=== PATIENT | female | born 1940 | race Caucasian/White ===

== ENCOUNTER 2016-11-28 12:05 | Emergency (ER) | payer OTHER, BC ==
[2016-11-28 12:13] VITALS: BP 130/70; PULSE 80; TEMP 97.8; BMI 46.5
--- NOTE | 2016-11-28 13:40 | PDOC ---
History of Present Illness - General Chief Complaint: Eye Problem Stated Complaint: R EYE REDNESS AND SWELLING Time Seen by Provider: 11/28/16 12:11 History Source: Patient, Family Exam Limitations: No Limitations - History of Present Illness Initial Comments: 11/28/16 13:35 CHIEF COMPLAINT: Right upper eyelid swelling 2 days HISTORY OF PRESENT ILLNESS: This is a 75-year-old woman with a history of atrial fibrillation. Patient developed right upper eyelid discomfort with swelling 2 days. There is some mild mucous discharge. There is no change in vision. There is no fever or chills. No history of trauma. REVIEW OF SYSTEMS: No fever or chills No headache Positive mild right upper lid discomfort No vision change No sore throat No cough Past History - Past Medical History Allergies/Adverse Reactions: Allergies Allergy/AdvReac Type Severity Reaction Status Date / Time No Known Allergies Allergy Verified 11/28/16 12:15 Home Medications: Ambulatory Orders Metoprolol Succinate [Toprol XL -] 25 mg PO BID #60 tab.sr.24h 09/24/14 Rivaroxaban [Xarelto -] 20 mg PO DAILY #30 tablet 09/24/14 Bacitracin Ophthalmic Oint - 1 applic OD Q4H #1 tube 11/28/16 Furosemide [Lasix] 40 mg PO ASDIR 11/28/16 Anemia: No Asthma: No Cancer: Yes (UTERINE) Cardiac Disorders: Yes (PALPITATIONS) CVA: No COPD: No CHF: Yes (??? on lasix and aldactone, denies) Dementia: No Diabetes: No GI Disorders: No Disorders: No HTN: Yes Hypercholesterolemia: No Liver Disease: No Seizures: No Thyroid Disease: No - Surgical History Abdominal Surgery: No Appendectomy: Yes Cardiac Surgery: No Cholecystectomy: No Lung Surgery: No Neurologic Surgery: No Orthopedic Surgery: No Other Surgical History: 11/28/16 13:37 hysterectomy for cancer 10 years ago - Psycho/Social/Smoking Cessation Hx Anxiety: No Suicidal Ideation: No Smoking History: Never smoked Have you smoked in the past 12 months: No Hx Alcohol Use: No Drug/Substance Use Hx: No Substance Use Type: None Hx Substance Use Treatment: No *Physical Exam - Vital Signs Last Vital Signs Temp Pulse Resp BP Pulse Ox 97.8 F 80 18 130/70 100 11/28/16 12:08 11/28/16 12:08 11/28/16 12:08 11/28/16 12:08 11/28/16 12:08 - Physical Exam Comments: 11/28/16 13:37 GENERAL: The patient is awake, alert, and fully oriented, in no acute distress. HEAD: Normal with no signs of trauma. EYES: acuity normal left eye normal right eye with red, swollen upper lid, slight tenderness, not pointing conjunctiva clear, no discharge or injection eom full pupil normal and reactive EXTREMITIES: Normal range of motion, no edema. NEUROLOGICAL: Normal speech, slow gait, uses a walker, no change from baseline. PSYCH: Normal mood, normal affect. SKIN: Warm, Dry, normal turgor, no rashes or lesions noted. Medical Decision Making - Medical Decision Making 11/28/16 13:39 Patient is a 75-year-old woman who presents with 2 days of right upper eyelid swelling. On examination the upper lid is red and swollen with slight tenderness. The lower lid is normal. The conjunctiva, cornea, and pupil are all normal. Impression: Chalazion of the right upper eyelid. Not yet pointing. Patient will be given bacitracin ophthalmic ointment along with warm compresses. She has been advised to follow-up with the acoustical carpenter in 24-48 hours. *DC/Admit/Observation/Transfer Diagnosis at time of Disposition: Chalazion of right upper eyelid - Discharge Dispostion Disposition: HOME Condition at time of disposition: Stable Admit: No - Prescriptions Prescriptions: Bacitracin Ophthalmic Oint - 1 applic OD Q4H #1 tube - Referrals Referrals: Maged Herrmann MD [Staff Physician] - 2 Days - Patient Instructions Printed Discharge Instructions: DI for Chalazion Additional Instructions: You were evaluated for a stye of the right upper eyelid. Use the antibiotic bacitracin ointment, a small amount every 4 hours, and use warm compresses every 4 hours. Follow up with the eye doctor in 2 days. Return to the ER for any severe or progressive symptoms.
[2016-11-28] MEDS ORDERED: MUPIROCIN 2% TOPICAL OINTMENT 22 GM TUBE ONE (13:45)
[2016-11-28] MEDS ORDERED: BACITRACIN 3.5 GM OPTHALMIC OINT TUBE OD ONE (13:46)
== END 2016-11-28 14:05 | disposition home or self-care (01) ==
LOC: FER 12:05
DX: H00.11 Chalazion right upper eyelid (principal); I48.91 Unspecified atrial fibrillation; Z85.42 Personal history of malignant neoplasm of other parts of uterus; R00.2 Palpitations; I10 Essential (primary) hypertension; I50.9 Heart failure, unspecified
CPT/HCPCS: 99281-25